=== PATIENT | female | born 1980 | race Caucasian/White ===

== ENCOUNTER 2019-03-15 08:45 | Emergency (ER) | payer BC ==
[~2019-03-15] VITALS: Ht 162.6 cm; Wt 122.5 kg
[~2019-03-15 08:45] MED LIST: PERCOCET 5-3251 EACH PO; TAMSULOSIN HCL0.4 M1 PO; VICODIN 5-3001 EACH PO; XANAX 0.5 MG0.5 MG PO
[2019-03-15 09:30] LABS: ABSOLUTE NEUTROPHILS 6.9 thou/uL (1.4-8.2); BASOPHILS 0.4 % (0.0-2.0); EOSINOPHILS 1.5 % (0.0-3.0); HEMATOCRIT 39.4 % (37.0-47.0); HEMOGLOBIN 13.4 gm/dL (12.0-15.0); LYMPHOCYTES 10.5 % (24.0-44.0); MCH 28.2 pg (26.0-34.0); MCHC 33.9 g/dL (28.0-37.0); MCV 83.1 fL (80.0-100.0); MONOCYTES 4.3 % (1.0-8.0); PLATELET COUNT 278 thou/uL (150-400); POLYS 83.3 % (36.0-66.0); RBC 4.74 mil/uL (4.20-5.00); RDW 14.8 % (10.5-14.5); WBC 8.3 thou/uL (4.0-11.0)
[2019-03-15 09:34] LABS: ANION GAP 14 mmol/L (7-16); BUN 14 mg/dL (7-18); CALCIUM 9.5 mg/dL (8.5-10.1); CHLORIDE 101 mmol/L (98-107); CO2 20 mmol/L (21-32); CREATININE 0.8 mg/dL (0.6-1.0); GLUCOSE 130 mg/dL (74-106); SODIUM 135 mmol/L (136-145)
[2019-03-15 09:43] LABS: LIPASE 118 U/L (73-393); TROPONIN-I <0.06 ng/mL (<0.06)
--- NOTE | 2019-03-15 11:34 | EKG ---
[address] [address] ELECTROCARDIOGRAM REPORT Name: MUNOZMAYO Room #: REG [facility]#: [id number] ������������������ Admission: 03/15/19 ������������������ Attend Phys: Discharge: ������������������ Date of : 76 Report #: [id number] ����������������������������������������������������������������� [id number] THIS REPORT FOR: //name// [facility] ED Test Date: 2019-03-15 Test Time: 08:49:39 Pat Name: MAYO MUNOZ Department: Room: Gender: F Buildings Painter: RAÚL : 1980 Requested By: Maikel Reyes Order Number: [id number] MD: Wesley Claros Measurements Intervals [place] Rate: 81 P: 55 UT: 165 QRS: 22 QRSD: 122 T: 39 QT: 363 QTc: 422 Interpretive Statements Sinus rhythm Nonspecific intraventricular conduction delay No previous ECG available for comparison Electronically Signed On 03-15-2019 11:34:32 CDT by Wesley Claros [email or web address] ��������������������������������������������� <ELECTRONICALLY SIGNED> ���������������������������������������� By: Wesley Claros MD ��������������������������������������������� 03/15/19 1134 0849 0849 Wesley Claros MD /EPI
[2019-03-15 13:06] VITALS: BP 148/82
== END 2019-03-15 13:07 | disposition home or self-care (01) ==
LOC: ER 08:45
PROVIDERS: Emergency Medicine
DX: R07.89 Other chest pain (principal); M54.2 Cervicalgia; M25.512 Pain in left shoulder; R11.0 Nausea; R06.02 Shortness of breath; R42 Dizziness and giddiness; I10 Essential (primary) hypertension; E78.5 Hyperlipidemia, unspecified

== ENCOUNTER → 2019-04-03 | Outpatient (CLI) | payer BC ==
--- NOTE | 2019-04-03 12:12 | 2DMMODE ---
[facility] [place] [address] 2 D/M-MODE ECHOCARDIOGRAM Name: MAYO MUNOZ Room #: REG CL [facility]#: [id number] ������������� Admission: 04/03/19 ������������� Attend Phys: Wesley Claros MD Discharge: ��� ������������� ��� Date of : 76 Date of Service: 04/03/19 1211 �� Report #: [id number] �������� ��������������������������������������������[id number] THIS REPORT FOR: //name// APPROVED REPORT Study performed: 04/03/2019 10:14:05 EXAM: Comprehensive 2D, Doppler, and color-flow Echocardiogram Patient Location: Echo lab Status: routine BSA: 2.22 HR: 74 bpm BP: 123/85 mmHg Rhythm: NSR Other Information Study Quality: Adequate Indications Chest Pain Hypertension/HDD 2D Dimensions RVDd: 31.16 mm IVSd: 10.10 (7-11mm) LVOT Diam: 21.70 (18-24mm) LVDd: 48.17 mm PWd: 9.06 (7-11mm) Ascending Ao: 34.03 (22-36mm) LVDs: 30.73 (25-40mm) Aortic Root: 35.07 mm IVC: 21.00 mm Volumes Left Atrial Volume (Systole) Single Plane 4CH: 43.18 mL Single Plane 2CH: 27.90 mL LA ESV Index: 16.96 mL/m2 Aortic Valve AoV Peak Stu.: 1.57 m/s AO Peak Gr.: 9.86 mmHg LVOT Max P.54 mmHg LVOT Max V: 0.80 m/s Mitral Valve E/A Ratio: 1.4 MV Decel. Time: 189.32 ms MV E Max Stu.: 0.99 m/s [facility] [address] [place] [address] 2 D/M-MODE ECHOCARDIOGRAM Name: MAYO MUNOZ Room #: REG [facility]#: [id number] ������������� Admission: 04/03/19 ������������� Attend Phys: Wesley Claros MD Discharge: ��� ������������� ��� Date of : 76 Date of Service: 04/03/19 1211 �� Report #: [id number] �������� ��������������������������������������������[id number] MV A Stu.: 0.70 m/s MV PHT: 54.90 ms IVRT: 101.50 ms Pulmonary Valve PV Peak Stu.: 1.22 m/s PV Peak Gr.: 5.99 mmHg Pulmonary Vein P Vein S: 0.71 m/s P Vein D: 0.60 m/s P Vein S/D Ratio: 1.18 Tricuspid Valve TR Peak Stu.: 2.48 m/s RAP Estimate: 5.00 mmHg TR Peak Gr.: 24.63 mmHg PA Pressure: 30.00 mmHg Left Ventricle The left ventricle is normal size. There is normal left ventricular wall thickness. The left ventricular systolic function is normal. The left ventricular ejection fraction is within the normal range. LVEF is 55-60%. The left ventricular diastolic function is normal. Right Ventricle The right ventricle is normal size. The right ventricular systolic function is normal. Atria The left atrium size is normal. The right atrium size is normal. Aortic Valve The aortic valve is not well visualized, appears normal in structure. No aortic regurgitation is present. There is no aortic valvular stenosis. Mitral Valve The mitral valve is normal in structure. Mild mitral regurgitation. No evidence of mitral valve stenosis. Tricuspid Valve The tricuspid valve is normal in structure. Mild tricuspid regurgitation. Estimated PAP of 30 mmHg. Pulmonic Valve Pulmonic valve is not well visualized. Mild pulmonic [facility] [address] [place] [address] 2 D/M-MODE ECHOCARDIOGRAM Name: MUNOZMAYO Room #: REG [facility]#: [id number] ������������� Admission: 04/03/19 ������������� Attend Phys: Wesley Claros MD Discharge: ��� ������������� ��� Date of : 76 Date of Service: 04/03/19 1211 �� Report #: [id number] �������� ��������������������������������������������[id number] regurgitation. Great Vessels The aortic root is normal in size. The ascending aorta is normal in size. IVC is normal in size and collapses >50% with inspiration. Pericardium There is no pericardial effusion. <Conclusion> The left ventricle is normal size. There is normal left ventricular wall thickness. The left ventricular systolic function is normal. The left ventricular diastolic function is normal. The right ventricle is normal size. The left atrium size is normal. There is no aortic valvular stenosis. Mild mitral regurgitation. Mild tricuspid regurgitation. Estimated PAP of 30 mmHg. ��������������������������������������������� <ELECTRONICALLY SIGNED> ���������������������������������������� By: Wesley Claros MD ��������������������������������������������� 04/03/191210 10 10 Wesley Claros MD /INF
--- NOTE | 2019-04-03 12:20 | EXE ---
[facility] [employer] [place] [address] STRESS ECHOCARDIOGRAM Name: BIRD MUNOZLINE HARI Room #: REG CL [facility]#: [id number] ������������� Admission: 04/03/19 ������������� Attend Phys: Wesley Claros MD Discharge: ��� ������������� ��� Date of : 76 Date of Service: 04/03/19 1220 �� Report #: [id number] �������� ��������������������������������������������[id number] THIS REPORT FOR: //name// APPROVED REPORT Study performed: 04/03/2019 11:24:25 Exam: Stress Echocardiogram Indication: Chest pain Patient Location: Out-Patient Stress Nurse: Nohemi Sweet RN Status: routine Ht: 5 ft 4 in HR: 71 bpm BP: 123/85 mmHg Rhythm: NSR Medical History Medications: Listed on worksheet Allergies: No known drug allergies Cardiac Risk Factors: HTN, Hyperlipidemia, morbid obesity Procedure The patient underwent an Exercise Stress Test using the Zion Protocol. Blood pressure, heart rate, and EKG were monitored. An Echocardiogram was performed by solder technician in four stages in quad fashion. At peak stress, four selected images were obtained and placed side by side with resting images for comparison. Stress Test Details Stress Test: Exercise stress testing was performed using a Zion protocol. HR Resting HR: 71 bpm Max Heart Rate (APMHR): 180 bpm Max HR Achieved: 164 bpm Target HR (85% APMHR): 153 bpm % of APMHR: 91 Recovery HR: 96 bpm HR response to stress: Normal HR response to stress BP Resting BP: 123/85 mmHg Max BP: 220/70 mmHg Recovery BP: 176/72 mmHg BP response to stress: Abnormal hypertensive response to [facility] [address] [place] [address] STRESS ECHOCARDIOGRAM Name: MAYO MUNOZ Room #: REG CL [facility]#: [id number] ������������� Admission: 04/03/19 ������������� Attend Phys: Wesley Claros MD Discharge: ��� ������������� ��� Date of : 76 Date of Service: 04/03/19 1220 �� Report #: [id number] �������� ��������������������������������������������[id number] stress. ECG Resting ECG: Sinus Rhythm Stress ECG: Sinus Rhythm, nonspecific ST-T abnormalities ST Change: Non-ischemic Clinical Reason for Termination: Dyspnea Exercise duration: 6 min 37 sec Highest Stage Achieved: Stage 3: 3.4 mph at 14% grade. Exercise capacity: 8.4 METs Patient reports chest pressure after exercise. Pre-Stress Echo The resting Echocardiogram showed normal left ventricular contractility with an estimated Ejection Fraction of about 55-60%. Normal wall motion in all segments on baseline images. Post-Stress Echo The stress Echocardiogram showed normal left ventricular contractility with an estimated Ejection Fraction of about 65-70%. Normal augmentation of wall motion in all segments on post stress images. Clinical No clinical or ECG evidence for ischemia. Conclusion Clinical Response: Non-ischemic Exercise Capacity: Below Average Stress ECG Response: Non-ischemic Stress Echo Images: Non-ischemic The left ventricle is normal in size and wall thickness in both the rest and stress images. Other Information Study Quality: Adequate/technically difficult due to morbid obesity. <Conclusion> The left ventricle is normal in size and wall thickness in both the rest and stress images. ��������������������������������������������� <ELECTRONICALLY SIGNED> ���������������������������������������� By: Wesley Claros MD ��������������������������������������������� 04/03/19 1220 1220 1220 Wesley Claros MD /INF
== END ==
LOC: CV 09:55
DX: I08.8 Other rheumatic multiple valve diseases (principal); I10 Essential (primary) hypertension; E78.5 Hyperlipidemia, unspecified; E66.9 Obesity, unspecified